=== PATIENT | female | born 1995 | race Caucasian/White ===

== ENCOUNTER 2020-09-07 14:56 | Outpatient (RCR) | payer OTHER, SELFPAY ==
[2020-09-07 15:07] VITALS: BMI 40.1
[2020-09-07 15:14] VITALS: BMI 40.1
== END 2020-11-27 14:23 | disposition home or self-care (01) ==
LOC: ANHDMC 14:56
PROVIDERS: PCP Internal Medicine; Visit Provider Clinical Nurse Specialist
DX: E11.9 Type 2 diabetes mellitus without complications (principal); Z71.3 Dietary counseling and surveillance
CPT/HCPCS: 97802

== ENCOUNTER 2020-11-07 17:23 | Emergency (ER) | payer OTHER, SELFPAY ==
--- NOTE | 2020-11-07 17:26 | ED.URI ---
HPI - URI/Sore Throat General Chief Complaint: Upper Respiratory Infection Stated Complaint: sore throat fever Time Seen by Provider: 11/07/20 17:44 Source: patient and RN notes reviewed Mode of arrival: ambulatory Limitations: no limitations History of Present Illness HPI Narrative: 25-year-old female presents concern for sore throat, ear pain, fever. Reports exposure to strep. 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 She is not vaccinated for Covid. She reports she takes Zyrtec, denies other intervention. She denies cough, shortness of breath, body aches, chills, sweats. MD elicited complaint: sore throat Related Data Home Medications Medication Instructions Recorded Confirmed metformin 1,000 mg PO DAILY 11/07/20 11/07/20 Allergies Allergy/AdvReac Type Severity Reaction Status Date / Time latex Allergy Mild Hives Verified 11/07/20 17:25 Review of Systems Review of Systems: Narrative: CONSTITUTIONAL: Denies malaise, chills, sweats. Reports fever. EYES: Denies visual changes, redness, or discharge. ENT: Denies rhinorrhea, congestion, sinus pain, otalgia. Reports sore throat. CARDIOVASCULAR: Denies chest pain, palpitations, or edema. RESPIRATORY: Denies cough or dyspnea. GASTROINTESTINAL: Denies abdominal pain, nausea, vomiting, diarrhea SKIN: Denies rash or itching. MUSCULOSKELETAL: Denies myalgia. NEUROLOGIC: Denies headache. All systems reviewed & are unremarkable except as noted in HPI and below PMFSH Past Medical History Medical History Allergies Asthma Frequent headaches Hypothyroidism, acquired Migraines PCOS (polycystic ovarian syndrome) Type 2 diabetes mellitus, without long-term current use of insulin Surgical History Surgical History History of myringotomy 1996, 1997 History of tonsillectomy 1998 Family History Family History Mother Angina at rest Precancerous lesion Hypertension Gestational diabetes Varicose veins of anus or rectum Borderline personality disorder Anxiety with depression Alcoholism Grandparent Asthma COPD (chronic obstructive pulmonary disease) Emphysema of lung Tumor Cysts of both ovaries Agoraphobia Panic attacks Anxiety with depression Arthritis Heel spur Acute myocardial infarction Skin cancer Rheumatoid arthritis Cataracts, both eyes Diabetes mellitus Heart disease Ovarian cancer Hypothyroidism Father Drug addiction Alcoholism Social History Social History (Updated 10/05/20 @ 14:34 by Erica Pérez) Smoking status: Never smoker Spiritual care concerns: No Comments At time of signature, agree with nursing past medical, surgical, social and family history. There is no relevant family history pertinent to the presenting complaint Exam Narrative: Exam Narrative: GENERAL: Well-appearing, well-nourished, and in no acute distress. HEAD: Normocephalic EYES: PERRLA, conjunctivae clear ENT: Nares clear, turbinates pink, no discharge. Mucous membranes moist. TM pearly tavera with sharp light reflex bilaterally; no tragal tenderness. Oropharynx mild erythematous without lesions. Tonsils not present, no drooling, no hoarseness, no trismus, uvula midline. NECK: Supple. No lymphadenopathy CHEST: Clear to auscultation, breath sounds equal. No wheezing, rhonchi, rales, or stridor. No respiratory distress, speaks in full sentences. HEART: Regular rate and rhythm. No murmur heard. SKIN: Warm, dry, no rash. NEURO: Alert and oriented x3. PSYCH: Normal mood and affect Course Course Emergency Course: Patient is aware of diagnosis, understands and agrees to treatment plan. Anticipatory guidance given. Patient agrees to follow-up as directed and is aware of reasons to seek care at the emergency department. Portions of this record may have been created with voice recognition software [employer]
[2020-11-07 17:28] VITALS: BP 173/92; PULSE 108; RESP 20; TEMP 37.3; O2SAT 99
== END 2020-11-07 18:15 | disposition home or self-care (01) ==
PROVIDERS: Emergency Provider Nurse Practitioner; PCP Internal Medicine
DX: J02.9 Acute pharyngitis, unspecified (principal); Z20.822 Contact with and (suspected) exposure to COVID-19; J45.909 Unspecified asthma, uncomplicated; E03.9 Hypothyroidism, unspecified; E28.2 Polycystic ovarian syndrome; E11.9 Type 2 diabetes mellitus without complications; Z79.84 Long term (current) use of oral hypoglycemic drugs
CPT/HCPCS: 87081; 87426; 87880; 99213; C9803; G0463

== ENCOUNTER 2021-02-02 17:23 | Emergency (ER) | payer OTHER, SELFPAY ==
[2021-02-02 17:27] VITALS: BP 145/86; PULSE 96; RESP 18; TEMP 37.3; O2SAT 100
--- NOTE | 2021-02-02 17:35 | ED.SKABFB ---
HPI - Skin/Abscess/Foreign Bdy General Chief complaint: Skin/Abscess/Foreign Body Stated complaint: rash on face Time Seen by Provider: 02/02/21 17:35 Source: patient History of Present Illness HPI narrative: Patient presents with an itchy rash to her face. Patient denies any change in lifestyle no new detergents no new perfumes and no new facial make-up or cleansers complaint: rash Related Data Allergies Allergy/AdvReac Type Severity Reaction Status Date / Time latex Allergy Mild Hives Verified 02/02/21 17:34 Review of Systems Review of Systems: CONSTITUTIONAL: Denies fever, chills, or sweats. EYES: Denies visual changes, redness, or discharge. ENT: Denies rhinorrhea, congestion, sore throat, or otalgia. CARDIOVASCULAR: Denies chest pain, palpitations, or edema. RESPIRATORY: Denies cough or dyspnea. GASTROINTESTINAL: Denies abdominal pain, nausea, vomiting, or diarrhea. GENITOURINARY: Denies dysuria or hematuria. SKIN: Denies rash or itching. MUSCULOSKELETAL: Denies back pain, joint pain, or myalgia. NEUROLOGIC: Denies headache, numbness, or weakness. PSYCHIATRIC: Denies anxiety or depression. [facility] Past Medical History Medical History Allergies Asthma Frequent headaches Hypothyroidism, acquired Migraines PCOS (polycystic ovarian syndrome) Type 2 diabetes mellitus, without long-term current use of insulin Surgical History Surgical History History of myringotomy 1996, 1997 History of tonsillectomy 1998 Family History Family History Mother Angina at rest Precancerous lesion Hypertension Gestational diabetes Varicose veins of anus or rectum Borderline personality disorder Anxiety with depression Alcoholism Grandparent Asthma COPD (chronic obstructive pulmonary disease) Emphysema of lung Tumor Cysts of both ovaries Agoraphobia Panic attacks Anxiety with depression Arthritis Heel spur Acute myocardial infarction Skin cancer Rheumatoid arthritis Cataracts, both eyes Diabetes mellitus Heart disease Ovarian cancer Hypothyroidism Father Drug addiction Alcoholism Social History Social History (Updated 10/05/20 @ 14:34 by Erica Pérez) Smoking status: Never smoker Spiritual care concerns: No Comments At time of signature, agree with nursing past medical, surgical, social and family history. There is no relevant family history pertinent to the presenting complaint Exam Narrative: GENERAL: Well-appearing, well-nourished, and in no acute distress. HEAD: Normocephalic, atraumatic. EYES: PERRLA and EOMI. ENT: Nares clear, no rhinorrhea or epistaxis. Mucous membranes moist. NECK: Supple. CHEST: Clear to auscultation. No respiratory distress. HEART: Regular rate and rhythm. No murmur heard. Normal peripheral pulses. ABDOMEN: Soft, nontender, nondistended, normal active bowel sounds. EXTREMITIES: Normal range of motion. No edema. SKIN: Warm, dry, No induration fluctuance or drainage. No surrounding erythremia. No lesions and TTP. No specific pattern or dermatomal distribution. Several different stages with occasional scabbing and excoriation. Spares palms and soles. Findings consistent with contact dermatitis. RASH TO FACE NEURO: No focal deficits. Alert and oriented x3. Carissa Coma Scale Eye Opening: Spontaneous 4 [place] Coma Scale Motor: Obeys Commands 6 [place] Coma Scale Verbal: Oriented 5 Carissa Coma Scale Total 15 Course Vital Signs Vital signs: Vital Signs Temperature 37.3 C 02/02/21 17:27 Pulse Rate 96 02/02/21 17:27 Respiratory Rate 18 02/02/21 17:27 Blood Pressure 145/86 H 02/02/21 17:27 Pulse Oximetry 100 02/02/21 17:27 Temperature 37.3 C 02/02/21 17:27 Pulse Rate 96 02/02/21 17:27 Respiratory Rate 18 02/02/21 17:27 Blood Pressure 145/86 H 02/02/21 17:27 P
== END 2021-02-02 17:42 | disposition home or self-care (01) ==
PROVIDERS: Emergency Provider Nurse Practitioner Family; PCP Internal Medicine
DX: L25.9 Unspecified contact dermatitis, unspecified cause (principal); J45.909 Unspecified asthma, uncomplicated; E03.9 Hypothyroidism, unspecified; E28.2 Polycystic ovarian syndrome; E11.9 Type 2 diabetes mellitus without complications; Z79.4 Long term (current) use of insulin
CPT/HCPCS: 99213; G0463

== ENCOUNTER 2021-05-15 09:54 | Outpatient (CLI) | payer OTHER, SELFPAY ==
--- NOTE | 2021-05-15 11:00 | NEURO_ITS ---
Impression: # Complains of numbness of hands. # Right mild Carpal Tunnel Syndrome. # Left evolving Carpal Tunnel Syndrome. # No ulnar neuropathy. # Normal needle/EMG exam. Nerve Conduction Studies Anti Sensory Summary Table Stim Site NR Peak (ms) P-T Amp (?V) Site1 Site2 Delta-P (ms) Dist (cm) Manan (m/s) Left Median Anti Sensory (2-3nd Digit) Wrist 3.6 39.9 Wrist 2-3nd Digit 3.6 14.0 39 Wrist 3.5 31.4 Wrist 2-3nd Digit 3.6 14.0 39 Right Median Anti Sensory (2-3nd Digit) Wrist 4.5 34.0 Wrist 2-3nd Digit 4.5 14.0 31 Wrist 4.7 30.7 Wrist 2-3nd Digit 4.5 14.0 31 Left Radial Anti Sensory (Base 1st Digit) Wrist 2.0 16.0 Wrist Base 1st Digit 2.0 0.0 Right Radial Anti Sensory (Base 1st Digit) Wrist 2.4 7.2 Wrist Base 1st Digit 2.4 0.0 Left Ulnar Anti Sensory (5th Digit) Wrist 2.4 77.8 Wrist 5th Digit 2.4 14.0 58 Right Ulnar Anti Sensory (5th Digit) Wrist 2.2 68.6 Wrist 5th Digit 2.2 14.0 64 Motor Summary Table Stim Site NR Onset (ms) O-P Amp (mV) Site1 Site2 Delta-0 (ms) Dist (cm) Manan (m/s) Left Median Motor (Abd Poll Brev) Wrist 3.6 6.6 Elbow Wrist 4.9 27.0 55 Elbow 8.5 2.7 Right Median Motor (Abd Poll Brev) Wrist 4.2 1.7 Elbow Wrist 4.5 25.0 56 Elbow 8.7 1.5 Left Ulnar Motor (Abd Dig Minimi) Wrist 2.3 7.0 A Elbow Wrist 5.3 30.0 57 A Elbow 7.6 5.7 Right Ulnar Motor (Abd Dig Minimi) Wrist 2.3 6.5 A Elbow Wrist 4.5 26.0 58 A Elbow 6.8 5.5 F Wave Studies NR F-Lat (ms) L-R F-Lat (ms) Left Median (Mrkrs) (Abd Poll Brev) 27.93 0.55 Right Median (Mrkrs) (Abd Poll Brev) 28.48 0.55 Left Ulnar (Mrkrs) (Abd Dig Min) 27.74 1.25 Right Ulnar (Mrkrs) (Abd Dig Min) 26.48 1.25 EMG Side Muscle Nerve Root Ins Act Fibs Amp Dur Recrt Comment Right 1stDorInt Ulnar C8-T1 Nml Nml Nml Nml Nml Right Ext Indicis Radial (Post Int) C7-8 Nml Nml Nml Nml Nml Right Ext Digitorum Radial (Post Int) C7-8 Nml Nml Nml Nml Nml Right BrachioRad Radial C5-6 Nml Nml Nml Nml Nml Right PronatorTeres Median C6-7 Nml Nml Nml Nml Nml Right Abd Poll Brev Median C8-T1 Nml Nml Nml Nml Nml Left 1stDorInt Ulnar C8-T1 Nml Nml Nml Nml Nml Left Ext Indicis Radial (Post Int) C7-8 Nml Nml Nml Nml Nml Left Ext Digitorum Radial (Post Int) C7-8 Nml Nml Nml Nml Nml Left BrachioRad Radial C5-6 Nml Nml Nml Nml Nml Left PronatorTeres Median C6-7 Nml Nml Nml Nml Nml Left Abd Poll Brev Median C8-T1 Nml Nml Nml Nml Nml MTDD
== END 2021-05-15 09:55 | disposition home or self-care (01) ==
LOC: ANHNEURO 09:56
PROVIDERS: PCP Internal Medicine; Visit Provider Clinical Nurse Specialist
DX: G56.03 Carpal tunnel syndrome, bilateral upper limbs (principal); R20.0 Anesthesia of skin
CPT/HCPCS: 95886; 95911

== ENCOUNTER → 2021-08-17 02:23 | Outpatient (CLI) | payer OTHER, SELFPAY ==
[2021-08-17 17:14] LABS: SARS-CoV-2 RNA PCR Negative
== END ==
PROVIDERS: PCP Internal Medicine; Visit Provider Nurse Practitioner
DX: R51.9 Headache, unspecified (principal); Z20.822 Contact with and (suspected) exposure to COVID-19
CPT/HCPCS: C9803; U0003; U0005